=== PATIENT | female | born 2000 | race Caucasian/White ===

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

== ENCOUNTER 2019-10-08 22:33 | Emergency (ER) | payer OTHER ==
[~2019-10-08] VITALS: Ht 160 cm; Wt 65.3 kg
[2019-10-08 22:42] VITALS: BP 152/92
[2019-10-08] MEDS ORDERED: TRAM50TA PO (22:59)
--- NOTE | 2019-10-08 22:59 | PHYS DOC ---
Past Medical History Attending Signature I have participated in the care of this patient and I have reviewed and agree with all pertinent clinical information above including history, exam, and recommendations. (VIRGILIO CHACON MD) Adult General Chief Complaint Chief Complaint: PAIN CONTROL HPI HPI Patient is a 18 year old F who is here for pain related to recent Csection. Pt's significant other was just seen for low back pain and prescribed pain medicine. This pt then decided to check in to request pain medicine for her recent . She tells me that she had a second week of Sep at [facility] and has been healing well but that the OB is recommending NSAIDs for this pain and she doesn't feel it is controlling the pain. Pt tells me she had full work up regarding this pain yesterday at another facility but can't tell me what facility she was seen at. She then tells me that she was prescribed [place] but that it isn't working. I discussed with pt that narcotics would not be recommended for this, especially when taking care of a . Also concerning to me that pt checked in after her SO was here for pain medicine also. (STUART SIN) Review of Systems Review of Systems Constitutional: Denies fever or chills Respiratory: Denies cough or shortness of breath [] Cardiovascular: No additional information not addressed in HPI [] GI: Reports low abdominal pain. Denies nausea, vomiting, bloody stools or diarrhea [] : Denies dysuria or hematuria [] Musculoskeletal: Denies back pain or joint pain [] Integument: Reports pain at Csection site, healing incision Neurologic: Denies headache, focal weakness or sensory changes [] All other systems were reviewed and found to be within normal limits, except as documented in this note. (STUART SIN) Allergies Allergies Allergies Coded Allergies Type Severity Reaction Last Updated Verified ceftriaxone Allergy Unknown 10/08/19 Yes (VIRGILIO CHACON MD) Physical Exam Physical Exam Constitutional: Well developed, well nourished, no acute distress, non-toxic appearance. [] Neck: Normal range of motion, no tenderness, supple, no stridor. [] Cardiovascular:Heart rate regular rhythm, no murmur [] Lungs & Thorax: Bilateral breath sounds clear to auscultation [] Abdomen: Bowel sounds normal, soft, no masses, no pulsatile masses. [] Skin: healing low transverse incision, appears well, no signs of drainage or infection Back: No tenderness, no CVA tenderness. [] Extremities: No tenderness, no cyanosis, no clubbing, ROM intact, no edema. [] Neurologic: Alert and oriented X 3, normal motor function, normal sensory function, no focal deficits noted. [] Psychologic: Affect normal, judgement normal, mood normal. [] (STUART SIN) Current Patient Data Vital Signs Vital Signs Date Time Temp Pulse Resp B/P (MAP) Pulse Ox O2 Delivery O2 Flow Rate FiO2 10/08/19 22:42 98.3 96 12 152/92 (112) 96 Room Air 98.3 (VIRGILIO CHACON MD) EKG EKG [] (STUART SIN) Radiology/Procedures Radiology/Procedures [] (STUART SIN) Course & Med Decision Making Course & Med Decision Making Pertinent Labs and Imaging studies reviewed. (See chart for details) Pt with no signs or symptoms of infection. Pt reports full work up yesterday and declines work up today. I discussed avoiding narcotics but offered to prescribe small amount of tramadol. Pt agreed and then told the nurse that she remembered that tramadol makes her sick. She was told that this is all we would offer today and that she should contact her hitch technician on Thursday to discuss her pain. (STUART SIN) Dragon Disclaimer Dragon Disclaimer This electronic medical record was generated, in whole or in part, using a voice recognition dictation system. (STUART SIN) Departure Departure Impression: Primary Impression: Postoperative pain Disposition: 01 HOME, SELF-CARE Condition: STABLE Referrals: NO PCP (PCP) Patient Instructions: Pain Relief Preoperatively and Postoperatively Additional Instructions: Please call your hitch technician on Thursday to discuss your pain. Return to ER with any worsening symptoms. Scripts Tramadol Hcl (TRAMADOL HCL) 50 Mg Tablet 50 MG PO Q6-8HRS PRN for PAIN, #15 TAB 0 Refills Prov: STUART SIN 10/08/19 STUART SIN Oct 08, 2019 22:59 VIRGILIO CHACON MD Oct 11, 2019 18:10
== END 2019-10-08 23:07 | disposition home or self-care (01) ==
LOC: ER 22:33
DX: O90.89 Other complications of the puerperium, not elsewhere classified (principal); M54.5 Low back pain; Z88.1 Allergy status to other antibiotic agents
CPT/HCPCS: 99283